=== PATIENT | female | born 1960 | race Caucasian/White ===

== ENCOUNTER → 2018-03-02 19:05 | Outpatient (CLI) | payer BC, SELFPAY ==
--- NOTE | 2018-03-02 19:10 | CT_ITS ---
STUDY: CT ABDOMEN AND PELVIS WITH CONTRAST REASON FOR EXAM: Female, 57 years old. Mid abdominal pain and fullness RADIATION DOSAGE (If Supplied By Facility): CTDIvol = ( 14.91 ) mGy, DLP = ( 722.36 ) mGycm TECHNIQUE: Transaxial images were obtained from the dome of the diaphragm to the symphysis pubis without oral contrast. 100 ml of Isovue 300 contrast was administered. Sagittal and coronal images were reconstructed. Individualized dose optimization techniques were used for this CT. COMPARISON: None. FINDINGS: The visualized lung bases are clear. The visualized portions of the heart and pericardium are within normal limits. There are no calcified gallstones present. Wall appears thickened. The liver is within normal limits. There are no suspicious hepatic lesions. The spleen is normal in size. The pancreas is within normal limits. The adrenal glands are within normal limits. There is a 5 mm nonobstructing stone in the collecting system of the left kidney. There are no additional urinary stones. There is no hydronephrosis. There are simple cysts in the right kidney. There are no left renal lesions. There is thickening of the distal body of the stomach (image 38 series 2 and image 37 series 601). This may be due to peristalsis, but focal gastritis or gastric lesion cannot be excluded. There is no bowel obstruction or inflammation. There is a large amount of stool in the colon, consistent with constipation. The appendix is visualized and appears normal. The aorta is normal in caliber. There is no abdominal or pelvic free air, free fluid, fluid collection or lymphadenopathy. There are no destructive osseous lesions. CT/Abdomen/Pelvis WITH Contrast IMPRESSION: Thickened of the distal body of the stomach. This may be due to peristalsis, but focal gastritis or gastric lesion cannot be excluded. No calcified gallstones. Questionable thickening of the gallbladder wall. If indicated, further evaluation with ultrasound could be performed. No bowel obstruction or inflammation. Normal appendix. Constipation. 5 mm nonobstructing stone in the collecting system of the left kidney. No additional urinary calculi. No hydronephrosis. Simple cysts in the right kidney. Electronically Signed: Josue Mendoza, at 20:03 EDT Tel , Service support ,
[2018-03-02 19:26] LABS: CREATININE FINGERSTICK 0.7 mg/dL (0.55-1.02)
== END ==
PROVIDERS: Family Provider Family Medicine; PCP Family Medicine; Visit Provider Family Medicine
DX: R10.9 Unspecified abdominal pain (principal)
CPT/HCPCS: 74177; Q9967

== ENCOUNTER → 2018-03-16 13:10 | Outpatient (CLI) | payer BC, SELFPAY ==
[2018-03-16 14:14] LABS: Erythrocyte Sedimentation Rate 8 mm/hr (0-30)
[2018-03-16 14:15] LABS: Absolute Lymphocyte Count 1.59 X10^3/ul (0.83-4.51); Absolute Neutrophil Count 3.9 X10^3/uL (2.0-7.7); Basophil# 0.02 X10^3/uL; Basophil% 0.3 % (0-1); Eosinophil# 0.07 X10^3/uL; Eosinophils% 1.1 % (0-5); Hematocrit 45.7 % (37-47); Hemoglobin 15.7 g/dl (12.0-15.0); Lymphocyte # 1.59 X10^3/ul (4.0); Lymphocyte % 25.8 % (19-41); Mean Corp Hgb Conc 34.4 g/gl (32-36); Mean Corpuscular Hgb 29.5 pg (27.0-32.0); Mean Corpuscular Volume 85.7 fL (81-99); Mean Platelet Vol. 11.3 fl (6.2-12.0); Monocyte# 0.55 X10^3/uL; Monocyte% 8.9 % (0-10); Neutrophil # 3.93 X10^3/uL (2.7-7.7); Neutrophil % 63.7 % (47-70); POSITIVE COUNT NO; POSITIVE DIFFERENTIAL NO; POSITIVE MORPHOLOGY NO; Platelet Count 218 K/mm3 (150-450); RBC Distribution Width CV 12.7 % (11.6-14.6); RBC Distribution Width SD 39.8 fl (35.1-43.9); Red Blood Count 5.33 M/mm3 (4.2-5.4); White Blood Count 6.2 K/mm3 (4.4-11.0)
[2018-03-16 14:49] LABS: AST(SGOT) 14 U/L (15-37); Alanine Aminotransfer ALT/SGPT 21 U/L (13-56); Albumin, Serum 3.8 g/dL (3.2-5.0); Alkaline Phosphatase 90 U/L (45-117); Anion Gap 5 (5-15); BUN 15 mg/dL (7-18); BUN/Creat Ratio 22.5 RATIO (10-20); Calcium,Total 9.3 mg/dL (8.5-10.1); Chloride 104 mmol/L (98-107); Creatinine, Serum 0.67 mg/dL (0.55-1.02); EST Glomerular Filtration Rate 97 mL/min (>60); Est Glom Filt Rate - Afr Amer 118 mL/min (>60); Globulin 3.7 g/dL (2.2-4.2); Glucose 112 mg/dL (74-106); Potassium 3.8 mmol/L (3.5-5.1); Protein, Total 7.5 g/dL (6.4-8.2); Sodium Level 139 mmol/L (136-145); Thyroid Stim Hormone (TSH) 0.51 uIU/mL (0.358-3.74)
[2018-03-17 10:21] LABS: Vitamin B12 740 pg/mL (211-911); Vitamin D,25 Hydroxy 29.7 ng/mL (29.95-100.01)
== END ==
PROVIDERS: Family Provider Family Medicine; PCP Family Medicine; Visit Provider Family Medicine
DX: R10.9 Unspecified abdominal pain (principal); R53.83 Other fatigue
CPT/HCPCS: 80053; 82306; 82607; 84443; 85025; 85652

== ENCOUNTER → 2018-04-08 09:06 | Outpatient (CLI) | payer BC, SELFPAY | PROVIDERS: Family Provider Family Medicine; PCP Family Medicine; Visit Provider Family Medicine | DX: R10.9 Unspecified abdominal pain (principal) | CPT/HCPCS: 76705 ==

== ENCOUNTER 2018-05-15 09:03 | Day surgery (SDC) | payer BC, SELFPAY ==
[2018-05-15] VITALS (7 sets, daily range): BP systolic 120–141; BP diastolic 55–78; PULSE 65–86; RESP 14–16; TEMP 36.1–36.7; O2SAT 94–100; BMI 28.2
--- NOTE | 2018-05-15 | GALL_PTH ---
PATIENT: DIALLO [place] [facility] [place] [facility] [id number] AGE/SX: 57/F ROOM: RE05/15/[address]: Dr. Glenroy Parsons MD : [id number] BED: DIS: 05/15/2018 SPEC #: [id number] RECD: 05/15/18 14:46 STATUS: NIDIA REStephie #: [id number] PAMELA: 05/15/18 00:[address]: Glenroy Parsons DEPT: SURGICAL PATHOLOGY RECD BY: Alexx Ramirez ENTERED: 05/15/18 14:46 SP TYPE: VIVIAN FITZGERALD DR: Dr. Constantine Ariza MD Tissues: Gallbladder, NOS Procedures: Surgery Specimen Level III HEADER OPERATION: Laparoscopic cholecystectomy PRE-OP DIAGNOSIS: Calculus of gallbladder with chronic cholecystitis without obstruction, epigastric abdominal pain, nausea TISSUE SUBMITTED: Gallbladder MICROSCOPIC DIAGNOSIS Gallbladder: Chronic cholecystitis and cholelithiasis. SJ:rich 05/16/18 MICROSCOPIC DESCRIPTION Slides are reviewed. GROSS DESCRIPTION Received is one container labeled with the patient's name and designated gallbladder. The specimen consists of a gallbladder measuring 11 cm in length and up to 4 cm in diameter. The external surface is pink-cali, smooth and glistening for the most part. Focally it is granular, hemorrhagic and contains cautery artifact. The gallbladder contains green-yellow mucoid bile and multiple multifaceted [id number]-[id number] stones and stone fragments measuring in aggregate 8 x 6 x 2 cm and 0.1 to 1 cm in greatest dimension. The mucosa is bile-stained and without any mass lesions. The gallbladder wall measures up to 0.3 cm in thickness. Senior Materials Planner sections from the gallbladder and the cystic duct are submitted in one cassette. / SJ:rich 05/15/18 TC:3 CPT: 15250
--- NOTE | 2018-05-15 09:13 | EKG12_ITS ---
Test Reason : PREOP Blood Pressure : / mmHG Vent. Rate : 076 BPM Atrial Rate : 076 BPM P-R Int : 154 ms QRS Dur : 094 ms QT Int : 396 ms P-R-T Axes : 071 -12 017 degrees QTc Int : 445 ms Normal sinus rhythm Normal ECG When compared with ECG of 29-AUG-2006 00:04, No significant change was found Confirmed by CHRISTINE ESCALERA, JESSA ([id number]), non linear editor EUN HOWELL ([id number]) on 05/22/2018 3:54:10 PM Referred By: Glenroy Parsons Confirmed By:JESSA KING MD
[2018-05-15] MEDS: Cefazolin 2 GM in 0.9% Normal Saline 100 ML IV (11:56)
--- NOTE | 2018-05-15 12:09 | PCM.OPRPT ---
Problem List (1) Calculus of gallbladder with chronic cholecystitis without obstruction Status: Acute (2) Epigastric pain Status: Acute (3) Nausea Status: Acute Report of Operation Date of Procedure: 05/15/18 Pre-Operative Diagnosis: Chronic calculus cholecystitis without obstruction. Nausea. Epigastric abdominal pain Post-Operative Diagnosis: Same Surgery/Procedure Performed:: Laparoscopic cholecystectomy Type of Anesthesia:: General Anesthesiologist: Rob Madera Estimated Blood Loss (mL): < 25 cc Fluids Replaced: 1 L LR Description of Procedure: Patient brought in the operating room placed in supine position under excellent general trach intubation abdomen was sterilely prepped draped in usual fashion. Local was injected infraumbilically dissection was carried down to the fascia the fascia grasped with a Anat varies needle was placed inside the abdomen the abdomen was insufflated to 15 torr 10/12 trocar was placed without difficulty patient placed in the head up and rotated to the left subxiphoid #5 trocar was placed, inferior to this another #5 trocar was placed, laterally a 5 trocar was placed. All these under direct visualization without injury to underlying structures. Moderate amount of adhesions were taken off the gallbladder fundus was then grasped and retracted in a cephalad direction. I dissected out the cystic duct place hemoclips proximally distally and ligated the duct identified the cystic artery placed hemoclips proximally distally and ligated the artery deliver the gallbladder from the gallbladder bed with use of electrocautery had no spillage of bile or stones placed a specimen specimen bag delivered through the umbilical port without difficulty irrigated the right upper quadrant used electrocautery for good hemostasis remove the trochars under direct visualization good hemostasis was noted close the fascia of the umbilical port with a [id number]-[id number] stitch of 0 Vicryl. Skin incisions were closed with septicum stitches of 4-0 Monocryl. Steri-Strips are applied sterile dressings were applied and the patient tolerated the procedure well. - Admit VTE Documentation VTE Present on Admission: No VTE Mechan Device Prophylaxis: SCD's VTE Pharm Prophylaxis ordered?: No Reason prophylaxis not ordered:: Treatment Not Indicated
[2018-05-15] MEDS: Bupivacaine Mpf 0.5% 30 ML VIAL (12:30)
--- NOTE | 2018-05-15 12:39 | DCINST_ITS ---
Discharge Diet: Light diet - advance as tolerated Discharge Activity: May Not Drive - for 2-3 days or while taking narcotic pain medications., - - Do not drive, work heavy equipment or sign legal documents for 24 hours. May shower in (days): 1 - with the bandage in place. Additional Activity Instructions:: Pain medication may cause nausea. You should typically eat light foods as you take your pain medications. Pain medication may also cause constipation. If this is a problem for you, please discuss with your doctor. Call your doctor if your incision/area has: Continuous Slow Oozing, Sudden Increased Bleeding, Increased Pain/ Swelling, Increased Redness, Foul Smelling Discharge Call your doctor if you observe: Fever of 101 or Higher Suture Line Care: Avoid Pulling/Pushing, Avoid Pinching/Bending Additional Dressing/Incision Instructions:: Leave operative bandaids on for 2 days. When you remove dressing, leave Steri-Strips on until your follow-up appointment, or until the Steri-Strips fall off on their own. Allergies/Adverse Reactions: Allergies codeine Allergy (Mild, Verified 04/28/18 08:19) muscle cramps Medications to take at Discharge Oxycodone HCl/Acetaminophen [Percocet 5/325] 1 - 2 tab PO Q4H PRN PRN 5 Days #30 tab 05/15/18 The following prescriptions were given: Oxycodone HCl/Acetaminophen [Percocet 5/325] 1 - 2 tab PO Q4H PRN PRN 5 Days #30 tab PRN Reason: Pain Primary Care Physician: Kevan Ariza MD [Primary Care Provider] - Test Results: Test results from this visit will be discussed in further detail at your follow- up appointment, if applicable. Please Follow Up With: Glenroy Parsons MD - Please call [phone] to schedule an appointment. When: 7 days after your surgery.
== END 2018-05-15 15:21 | disposition home or self-care (01) ==
LOC: SDC 09:04 → AC 09:05
PROVIDERS: Family Provider Family Medicine; PCP Family Medicine; Visit Provider Surgery
PROC: (CPT 47562; principal; 2018-05-15 11:00)
DX: K80.10 Calculus of gallbladder with chronic cholecystitis without obstruction (principal); Z85.41 Personal history of malignant neoplasm of cervix uteri; Z87.891 Personal history of nicotine dependence; K58.9 Irritable bowel syndrome, unspecified
CPT/HCPCS: 47562; 88304; 93005; J7120; J2405

== ENCOUNTER 2024-12-26 21:31 | Emergency (ER) | payer BC, SELFPAY ==
[2024-12-26] VITALS (9 sets, daily range): BP systolic 159–192; BP diastolic 83–100; PULSE 102–133; RESP 12–21; TEMP 36.2; O2SAT 93–98; BMI 32.7
--- NOTE | 2024-12-26 22:16 | EKG12_ITS ---
Test Reason : Blood Pressure : */* mmHG Vent. Rate : 110 BPM Atrial Rate : 110 BPM P-R Int : 138 ms QRS Dur : 102 ms QT Int : 374 ms P-R-T Axes : 72 -32 57 degrees QTcB Int : 506 ms Sinus tachycardia with Premature atrial complexes with Aberrant conduction Left axis deviation Moderate voltage criteria for LVH, may be normal variant ( R in aVL , Vinod product ) Abnormal ECG Confirmed by CHRISTINE ESCALERA, JESSA ([id number]), scientific editor KEYONA MORTENSEN ([id number]) on 12/31/2024 9:14:12 AM Referred By: Confirmed By: JESSA KING MD
--- NOTE | 2024-12-26 22:17 | EDS_ITS ---
HPI History of Present Illness Chief Complaint: Hypertension Informant: patient Onset/Context/Timing Onset: Weeks Current Severity: Mild Maximum Severity: Mild Narrative Narrative: 64-year-old female history of hypertension. Last saw her doctor about a year ago. States I am not taking care of myself. 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 Has a history of hypertension previously was on medications but took herself off those medications about 5 years ago. Did not think it was helping. Denies any chest pain. No abdominal pain. No vomiting or fever. Denies any dysuria. Prior similar symptoms: Yes Recent Illness/Hospitalization: [facility] Medical History (Updated 12/27/24 @ 01:[address] Inocente Varghese MD) History of cervical cancer Diarrhea Abdominal pain Gallstones Home Medications ?Medication ?Instructions ?Recorded ?Last Taken ?Type metoprolol tartrate 50 mg tablet 50 mg PO BID 30 days #60 tabs 12/27/24 Unknown Rx Allergy/AdvReac Type Severity Reaction Status Date / Time codeine AdvReac Severe muscle Verified 12/26/24 21:35 cramps Family History Mother Diabetes Hypertension Father Hypertension Heart disease Surgical History History of [facility] Social History Smoking Status: Former smoker alcohol intake: current alcohol intake frequency: a few times a month substance use type: does not use ROS ROS ED ROS Narrative General malaise. Intermittent diarrhea. Constitutional Constitutional ED: Denies chills or fever(s) ENT ENT ED: Denies ear pain Cardiovascular Cardiovascular: Denies chest pain Respiratory/Chest Respiratory/Chest: Denies cough or dyspnea Gastrointestinal Gastrointestinal: Reports diarrhea; Denies abdominal pain, melena, nausea or vomiting Genitourinary Genitourinary ED: Denies dysuria or hematuria Musculoskeletal Musculoskeletal: Denies arthralgias Integumentary Denies abscess Neurologic Neurologic: Denies headache(s) Psychiatric Psychiatric: Denies anxiety Endocrine Endocrinology: Denies cold intolerance Hematologic/Lymphatic Hematologic/Lymphatic: Reports none Allergic/Immunologic Allergic/Immunologic ED: Denies mouth swelling, tongue swelling or urticaria EXAM Physical Exam Narrative Exam Narrative: Well-appearing 64-year-old female. Vital signs her pulse and I am in the room just around 111. Afebrile. Initial pressure 192/100. Pulse ox 97% on room air no hypoxia. No distress. H EENT exam pupils round react light. Motions members. Neck nontender no JVD. No lymphadenopathy. Lungs clear to auscultation bilaterally. Heart tachycardic 115 no murmur. Chest wall nontender. Abdomen soft nontender. Moving all 4 extremities. Normal strength. Normal dorsi plantarflexion. Nontender no edema. Back nontender. Neurologically she is awake alert. Answering questions following commands. NIH 0. Const Vital Signs: 12/26/24 21:35 12/26/24 21:37 12/26/24 22:07 Temperature 97.1 F L Temperature Source Oral Pulse Rate 133 H 111 H Respiratory Rate 18 18 Respiratory Effort Normal Non-Labored Respiratory Pattern Normal Blood Pressure 192/100 H 180/85 H Blood Pressure Mean 130 116 Pulse Ox 97 98 Oxygen Delivery Method Room Air Room Air 12/26/24 23:00 12/26/24 23:48 12/27/24 00:00 Temperature Temperature Source Pulse Rate 115 H 111 H 116 H Respiratory Rate 16 18 14 Respiratory Effort Respiratory Pattern Blood Pressure 176/97 H 183/84 H 195/77 H Blood Pressure Mean 123 117 116 Pulse Ox 98 98 95 Oxygen Delivery Method Room Air Room Air Room Air Positive well nourished and well developed; Negative for cachectic, contractures or unkempt General Appearance ED: well developed; Negative for unkempt, cachectic, contractures, cyanotic, diaphoretic or pallor Nutritional Appearance: Negative for cachectic HEENT Reports moist mucous membranes Negative for trauma or tenderness Eyes PERRL and EOMs intact bilaterally Neck no lymphadenopathy, supple and no JVD Chest Wall inspection of chest normal and palpation of chest normal Resp normal respiratory effort and clear to auscultation bilaterally Cardio regular rhythm, S1 normal heart sound, S2 normal heart sound and no murmurs; Negative for regular rate Rate: tachycardic GI normal to inspection, nondistended, normoactive bowel sounds, non-tender, non- distended and no masses Auscultation: normoactive bowel sounds Palpation: soft; Negative for tender, guarding or rebound tenderness present Back/Spine no CVA tenderness General Back: Negative for CVA tenderness Cervical Spine: Negative for cervical spine tenderness Thoracic Spine / Upper Back: Negative for thoracic spinal tenderness or paraspinal muscle tenderness Lumbar Spine / Lower Back: Negative for lumbar spinal tenderness Extremity normal to inspection General Extremety ED: Negative for edema or tenderness General Extremity: Negative for edema Neuro oriented x3 and CN's II-XII intact bilaterally Sensorium / Orientation: alert; Negative for orientation impaired, lethargic or stuporous Motor Exam: strength 5/5 throughout; Negative for general weakness or strength abnormal Psych mental status grossly normal Appearance: Negative for unkempt Attitude: No agitated Mood & Affect: Negative for depressed, anxious or tearful Skin no rashes or lesions noted and no wounds General Skin Exam: Negative for jaundice or pallor Lesions: No lesion noted Rashes: No rashes noted Trauma: Negative for abrasion MDM MDM MDM Narrative Medical decision making narrative: 64-year-old female general malaise has not been taking her blood pressure medication for years. Exam benign. She is tachycardic. EKG and labs are being obtained including a TSH. This could all be due to blood pressure. Could be secondary to anemia, dehydration thyroid disease,... Repeat exam patient is doing okay. She seems to be very anxious. She is also complaining some nausea. Given Zofran and one milligram of Ativan. Repeat exam around 1 AM patient doing well. Much more relaxed. Blood pressures currently about 150/90. Patient is feeling better. She feels comfortable being discharged home. I think she has acute on chronic hypertension has been treated because she came off the medication. Also think there is an anxiety component. She will be restarted on her metoprolol 50 mg twice daily. Log her blood pressures to follow-up with her doctor decide if they need to change or adjust the medication dose. Also discussed with her physician possible both medical and nonmedical ways to treat anxiety. History & Record Review Discussion w/independent historian: Patient and Family Additional record(s) reviewed:: Prior inpatient record, Prior outpatient record and Prior labs Lab Data Attestation: I reviewed the patient's lab results. Lab results narrative: CBC shows a white count 1.5. H&H is 16 and 47. Platelets 272. Electrolytes show sodium 140. Gap 13. BUN 16 creatinine 0.6. Glucose 139. TSH 1.2 and normal. Labs: Laboratory Results - last 24 hr 12/26/24 22:08 WBC 11.5 H RBC 5.56 H Hgb 16.4 H Hct 47.1 H MCV 84.7 MCH 29.5 MCHC 34.8 RDW Std Deviation 36.7 RDW Coeff of Tianna 11.9 Plt Count 272 MPV 10.8 Immature Gran % (Auto) 0.400 Neut % (Auto) 72.2 H Lymph % (Auto) 18.6 L Towns % (Auto) 7.6 Eos % (Auto) 0.6 Baso % (Auto) 0.6 Absolute Neuts (auto) 8.3 H Absolute Lymphs (auto) 2.14 Nucleated RBC % 0 Sodium 140 Potassium 3.5 Chloride 103 Carbon Dioxide 24.1 Anion Gap 13 BUN 16 Creatinine 0.68 L Estim Creat Clear Calc 91.25 Est GFR (MDRD) Non-Af 98 BUN/Creatinine Ratio 24.0 H Glucose 139 H Calcium 10.4 TSH 1.220 Rhythm Strip Rhythm Strip: Sinus Tach Rate: 110 Ectopy: PVC(s) EKG Initial EKG: Attestation: I personally reviewed and interpreted this EKG as follows: Interpretation: Sinus Tachycardia Comments: Sinus tachycardia rate of 110. PVCs. No acute signs of MS or ischemia. Discharge Plan Triage Chief Complaint: Hypertension ED Provider: Inocente Varghese Dx/Rx/DC Orders Clinical Impression: Hypertension, Anxiety Instructions: ED Anxiety Reaction, ED Hypertension, Established Prescriptions: New metoprolol tartrate 50 mg tablet 50 mg PO BID 30 Days Qty: 60 0RF Primary Care Provider: Constantine Ariza Referrals: Constantine Arzia MD [Primary Care Provider] - As soon as possible Activity Restrictions/Additional Instructions: Log your blood pressure twice daily. In the morning after breakfast when you are calm and relaxed. Again in the evening after dinner when you are calm and relaxed. Recorded and take a weeks worth of blood pressures to your doctor to see if they need to adjust your blood pressure medication. Also discussed with her primary care physician anxiety and ways to treat that both with medication and other ways such as reading, meditation, exercise and walking. Print Language: Japanese Disposition Disposition: Home, Self Care
[2024-12-26 22:32] LABS: Absolute Lymphocyte Count 2.14 X10^3/uL (0.83-4.51); Absolute Neutrophil Count 8.3 X10^3/uL (2.0-7.7); Basophil# 0.07 X10^3/uL; Basophil% 0.6 % (0-1); Eosinophil# 0.07 X10^3/uL; Eosinophils% 0.6 % (0-5); Hematocrit 47.1 % (37-47); Hemoglobin 16.4 g/dL (12.0-15.0); Lymphocyte # 2.14 X10^3/ul (0.83-4.51); Lymphocyte % 18.6 % (19-41); Mean Corp Hgb Conc 34.8 g/dL (32-36); Mean Corpuscular Hgb 29.5 pg (27.0-32.0); Mean Corpuscular Volume 84.7 fL (81-99); Mean Platelet Vol. 10.8 fl (6.2-12.0); Monocyte# 0.87 X10^3/uL; Monocyte% 7.6 % (0-10); NRBC Flagged by Analyzer 0 % (0-5); Neutrophil # 8.29 X10^3/uL (2.7-7.7); Neutrophil % 72.2 % (47-70); Platelet Count 272 K/mm3 (150-450); RBC Distribution Width CV 11.9 % (11.6-14.6); RBC Distribution Width SD 36.7 fl (35.1-43.9); Red Blood Count 5.56 M/mm3 (4.2-5.4); White Blood Count 11.5 K/mm3 (4.4-11.0)
--- NOTE | 2024-12-26 22:55 | ED.RN ---
This nurse into give Lisinopril per order. Pt asking numerous questions about medication, side effects, other options, asking questions regarding if BP goes to high. This nurse attempted to answer all questions. This nurse talked to Dr. Varghese. Instructed to educate pt on importance of medication and has a right to refuse med and would be in to talk to her.
[2024-12-26 22:56] LABS: Anion Gap 13 (5-15); BUN 16 mg/dL (4-19); Calcium,Total 10.4 mg/dL (7.6-11.0); Carbon Dioxide 24.1 mmol/L (21.0-32.0); Chloride 103 mmol/L (98-108); Creatinine, Serum 0.68 mg/dL (0.70-1.20); EST Glomerular Filtration Rate 98 (>60); Estimated Creatinine Clearance 91.25 ml/min (50-250); Glucose 139 mg/dL (70-99); Potassium 3.5 mmol/L (3.3-5.1); Sodium Level 140 mmol/L (133-145)
[2024-12-26] MEDS: Lisinopril 10 MG Tablet PO (23:00)
--- NOTE | 2024-12-26 23:59 | ED.RN ---
Pt up to the restroom. Complaining of chest tightness and unable to swallow. Pt was drinking water without complictions when this nurse walked in. O2 98% RA and RR 18. Assisted pt up to the restroom without difficulty. Dr. Varghese updated.
[2024-12-27] VITALS: BP 195/77; PULSE 116; PULSE 125; RESP 14; RESP 21; O2SAT 94; O2SAT 95
[2024-12-27] MEDS: Lorazepam 2 MG/ML WCH Syringe 1 MG IV (00:12)
[2024-12-27 00:15] VITALS: BP 144/77; PULSE 108; RESP 15; O2SAT 95
[2024-12-27 00:30] VITALS: BP 147/83; PULSE 116; RESP 19; O2SAT 92
[2024-12-27 00:45] VITALS: BP 150/71; PULSE 113; RESP 16; O2SAT 94
[2024-12-27 01:00] VITALS: BP 137/69; PULSE 109; RESP 15; TEMP 36.6; O2SAT 97
== END 2024-12-27 01:15 | disposition home or self-care (01) ==
PROVIDERS: Emergency Provider Emergency Medicine; PCP Family Medicine; Visit Provider Emergency Medicine
DX: I10 Essential (primary) hypertension (principal); R11.0 Nausea; F41.9 Anxiety disorder, unspecified; I49.3 Ventricular premature depolarization; Z91.148 Patient's other noncompliance with medication regimen for other reason; Z87.891 Personal history of nicotine dependence
CPT/HCPCS: 80048; 84443; 85025; 93005; 96374; 99284; A4216; J2405

== ENCOUNTER → 2025-02-06 | Outpatient (CLI) | payer BC, SELFPAY ==
[2025-02-06 17:49] LABS: Absolute Lymphocyte Count 1.93 X10^3/uL (0.83-4.51); Absolute Neutrophil Count 6.8 X10^3/uL (2.0-7.7); Basophil# 0.07 X10^3/uL; Basophil% 0.7 % (0-1); Eosinophil# 0.15 X10^3/uL; Eosinophils% 1.5 % (0-5); Hematocrit 41.9 % (37-47); Hemoglobin 14.2 g/dL (12.0-15.0); Lymphocyte # 1.93 X10^3/ul (0.83-4.51); Lymphocyte % 19.8 % (19-41); Mean Corp Hgb Conc 33.9 g/dL (32-36); Mean Corpuscular Hgb 29.8 pg (27.0-32.0); Mean Corpuscular Volume 87.8 fL (81-99); Mean Platelet Vol. 11.5 fl (6.2-12.0); Monocyte# 0.79 X10^3/uL; Monocyte% 8.1 % (0-10); NRBC Flagged by Analyzer 0 % (0-5); Neutrophil # 6.78 X10^3/uL (2.7-7.7); Neutrophil % 69.4 % (47-70); Platelet Count 281 K/mm3 (150-450); RBC Distribution Width CV 12.5 % (11.6-14.6); RBC Distribution Width SD 40.1 fl (35.1-43.9); Red Blood Count 4.77 M/mm3 (4.2-5.4); Reticulocyte Count 2.18 % (0.5-1.5); White Blood Count 9.8 K/mm3 (4.4-11.0)
[2025-02-06 18:29] LABS: ALB/GLOB Ratio 1.4 RATIO (0.9-2.4); AST(SGOT) 22 U/L (<=31); Alanine Aminotransfer ALT/SGPT 30 U/L (<=34); Albumin, Serum 4.1 g/dL (3.4-4.8); Alkaline Phosphatase 135 U/L (35-104); Anion Gap 10 (5-15); BUN 19 mg/dL (4-19); BUN/Creat Ratio 27.6 RATIO (10-20); Calcium,Total 9.7 mg/dL (7.6-11.0); Chloride 102 mmol/L (98-108); Cholesterol 279 mg/dL (<=200); EST Glomerular Filtration Rate 98 (>60); Ferritin 222 ng/mL (22-378); Globulin 2.9 g/dL (2.2-4.2); Glucose 113 mg/dL (70-99); High Density Lipoprotein 36 mg/dL; Low Density Lipoprotein Calc. 98 mg/dL; Potassium 3.7 mmol/L (3.3-5.1); Sodium Level 139 mmol/L (133-145); Total Bilirubin 0.32 mg/dL (0.00-1.30); Triglycerides 723 mg/dL; Very Low Density Lipoprotein 145 mg/dL (5-40); cholesterol:hdl ratio screen 7.73
[2025-02-06 18:52] LABS: Iron 97 ug/dL (50-170)
--- OUTSIDE RECORDS SUMMARY | 2025-02-06 22:34 | XMS RPT_ITS | CCD ---
Author Organization [facility] Care Team Providers Care Commercial Estimator Name Role Phone Unavailable Primary Care Provider UnavailANGELIQUE Lopez Referring Unavailable ANGELIQUE DE LEÓN Admitting Unavailable ANGELIQUE DE LEÓN Attending Unavailable ANGELIQUE DE LEÓN Referring Unavailable RG REINA Attending Unavailable Annita ESCALERA, Dr. Fitch Primary Care Provider Dr. Inocente Varghese MD Emergency Provider Inocente Varghese Attending Unavailable Constantine Ariza Primary Care Unavailable Allergies Allergy Classification Reported Allergen(s) Allergy Type Date of Onset Reaction(s) Facility (2 sources) Acetaminophen / oxyCODONE; Translations: [OXYCODONE-ACETAMI NOPHEN] Drug Allergy 2 Intolerance [facility] (1 source) Codeine Drug Allergy 5 muscle cramps [facility] (1 source) Codeine Drug Allergy 5 [facility] Repository Medications Current Medications Medication Drug Class(es) Dates Sig (Normalized) Sig (Original) metoprolol tartrate 50 mg oral tablet (1 source) beta-Adrenergic Fred Start: 12-27-2024 take 1 tablet by mouth twice daily Metoprolol Tartrate 50 mg tablet Active 50 mg PO TWICE A DAY 60 December 27, 2024 12:00am Completed/Discontinued Medications Medication Drug Class(es) Dates Sig (Normalized) Sig (Original) acetaminophen 500 mg oral tablet (1 source) take 2 tablets by mouth every eight hours as needed acetaminophen (TYLENOL EXTRA STRENGTH) 500 mg tablet Take 1,000 mg by mouth every 8 hours as needed. 0 Active Comment on above: Take 1,000 mg by cindy th every 8 hours as needed. acetaminophen 325 mg / oxyCODONE hydrochloride 5 mg oral tablet (1 source) Opioid Agonist Start: 05-15-2018 End: 05-20-2018 Oxycodone-Acetamino phen 1 TABLET tablet Discontinued 1 - 2 {tbl} PO EVERY 4 HOURS NEEDED as needed for Pain 30 May 15, 2018 12:00am May 19, 2018 12:00am May 20, 2018 12:12am Problems Problem Classification Problem Date Documented Date Episodic/Chronic Abdominal pain (1 source) Epigastric pain; Translations: [Epigastric pain] 05-15-2018 Episodic Anxiety disorders (1 source) Anxiety; Translations: [Anxiety disorder, unspecified] 12-27-2024 Chronic Biliary tract disease (1 source) Cholelithiasis AND cholecystitis without obstruction; Translations: [Calculus of gallbladder with chronic cholecystitis without obstruction] 05-15-2018 Episodic Calculus of urinary tract (2 sources) Calculus of kidney; Translations: [Kidney stone] Onset: 04-07-2022 Episodic Essential hypertension (2 sources) Hypertensive disorder; Translations: [Essential (primary) hypertension] Onset: 01-02-2025 12-27-2024 Chronic Nausea and vomiting (1 source) Nausea; Translations: [Nausea] 05-15-2018 Episodic Results Test Name Value Interpretation Reference Range Facility 12 Lead EKGon 12-26-2024 12 Lead EKG [facility] Cardi[facility] Services [address] [place] [address] 12 Lead EKG 12/26/24 2225 MR#: [id number] Acct: [id number] Name: DIALLO SAL Rep #: [id number] : 1960 64 From: Estuardo Danielson MD Attending Dr: Status: DEP ER Ordering Dr: Inocente Varghese MD Date: 12/26/24 Location: ED Sex: F C Admitted: Test Reason : Blood Pressure : */* mmHG Vent. Rate : 110 BPM Atrial Rate : 110 BPM P-R Int : 138 ms QRS Dur : 102 ms QT Int : 374 ms P-R-T Axes : 72 -32 57 degrees QTcB Int : 506 ms Sinus tachycardia with Premature atrial complexes with Aberrant conduction Left axis deviation Moderate voltage criteria for LVH, may be normal variant ( R in aVL , Hospers product ) Abnormal ECG Confirmed by ESTUARDO DANIELSON MD ([id number]), digital editor KEYONA MORTENSEN ([id number]) on 12/31/2024 9:14:12 AM Referred By: Confirmed By: ESTUARDO DANIELSON MD 12/31/2414 Date Estuardo Danielson MD CC: Dr. Constantine Ariza MD; Dr. Inocente Varghese MD Signed Normal [facility] Absolute lymphocyte countOrd ered By: Inocente Varghese on 12-26-2024 Lymphocytes Auto (Unsp spec) [#/Vol] 2.14 10*3/uL 0.83-4.51 [facility] Absolute neutrophil countOrd ered By: Inocente Varghese on 12-26-2024 Neutrophils (Bld) [#/Vol] 8.3 10*3/uL High 2.0-7.7 [facility] Anion gap in Serum or Plasma Ordered By: Inocente Varghese on 12-26-2024 Anion gap [Moles/Vol] 13 mmol/L 5-15 [facility] Automated lymphocyte count a s percentage of total leukocytesOrdered By: Inocente Varghese on 12-26-2024 Lymphocytes/100 WBC Auto (Unsp spec) 18.6 % Low 19-41 [facility] BUN/creatinine ratioOrdered By: Inocente Varghese on 12-26-2024 Urea nitrogen/Creatinine [Mass ratio] 24.0 mg/mg High 10-20 [facility] Basic Metabolic Profile (BMP )on 12-26-2024 BUN/CRE 24.0 RATIO High - [facility] Comment on above: Performed By: #### L 500.2500, L501.9520, L100.0100 #### [facility] [address] [place], [address] Calcium [Mass/Vol] 10.4 mg/dL Normal 7.6-11.[address] [facility] Comment on above: Performed By: #### L 500.2500, L501.9520, L100.0100 #### [facility] [address] [place], [address] Chloride [Moles/Vol] 103 mmol/L Normal 98-108 [facility] Comment on above: Performed By: #### L 500.2500, L501.9520, L100.0100 #### [facility] [address] [place], [address] CO2 [Moles/Vol] 24.1 mmol/L Normal 21.0-32.0 [facility] Comment on above: Performed By: #### L 500.2500, L501.9520, L100.0100 #### [facility] [address] [place], [address] Creatinine [Mass/Vol] 0.68 mg/dL Low 0.70-1.20 [facility] Comment on above: Performed By: #### L 500.2500, L501.9520, L100.0100 #### [facility] [address] [place], [address] ECRCL 91.25 ml/min Normal 50-250 [facility] Comment on above: Performed By: #### L 500.2500, L501.9520, L100.0100 #### [facility] [address] [place], [address] GAP 13 Normal 5-15 [facility] Comment on above: Performed By: #### L 500.2500, L501.9520, L100.0100 #### [facility] [address] [place], [address] GFR/1.73 sq M.predicted among non-blacks MDRD (S/P/Bld) [Vol rate/Area] 98 mL/min/{1.73_m2} Normal >60 [facility] Comment on above: Result Comment: mL/m in/1.73m2 CKD-EPI Creatinine Equation (2020) Performed By: #### L 500.2500, L501.9520, L100.0100 #### [facility] [address] [place], [address] Glucose [Mass/Vol] 139 mg/dL High 70-[address] [facility] Comment on above: Performed By: #### L 500.2500, L501.9520, L100.0100 #### [facility] [address] [place], [address] Potassium [Moles/Vol] 3.5 mmol/L Normal 3.3-5.1 [facility] Comment on above: Performed By: #### L 500.2500, L501.9520, L100.0100 #### [facility] [address] [place], [address] Sodium [Moles/Vol] 140 mmol/L Normal 133-[address] [facility] Comment on above: Performed By: #### L 500.2500, L501.9520, L100.0100 #### [facility] [address] [place], [address] Urea nitrogen [Mass/Vol] 16 mg/dL Normal 4-19 [facility] Comment on above: Performed By: #### L 500.2500, L501.9520, L100.0100 #### [facility] [address] [place], [address] Basophil percentageOrdered B y: Inocente Varghese on 12-26-2024 Basophils/100 WBC (Bld) 0.6 % 0-1 [facility] CBC W/Diff, Automatedon 12-13 Absolute Lymph 2.14 X10 3/uL Normal 0.83-4.51 [facility] Comment on above: Performed By: #### L 500.2500, L501.9520, L100.0100 #### [facility] [address] [place], [address] Absolute Neut 8.3 X10 3/uL High 2.0-7.7 [facility] Comment on above: Performed By: #### L 500.2500, L501.9520, L100.0100 #### [facility] [address] [place], [address] Basophils/100 WBC (Bld) 0.6 % Normal 0-1 [facility] Comment on above: Performed By: #### L 500.2500, L501.9520, L100.0100 #### [facility] [address] [place], [address] Eosinophils/100 WBC (Bld) 0.6 % Normal 0-5 [facility] Comment on above: Performed By: #### L 500.2500, L501.9520, L100.0100 #### [facility] [address] [place], [address] Erythrocyte distribution width (RBC) [Ratio] 11.9 % Normal 11.6-14.6 [facility] Comment on above: Performed By: #### L 500.2500, L501.9520, L100.0100 #### [facility] [address] [place], [address] Hematocrit (Bld) [Volume fraction] 47.1 % High 37-47 [facility] Comment on above: Performed By: #### L 500.2500, L501.9520, L100.0100 #### [facility] [address] [place], [address] Hemoglobin (Bld) [Mass/Vol] 16.4 g/dL High 12.0-15.0 [facility] Comment on above: Performed By: #### L 500.2500, L501.9520, L100.0100 #### [facility] [address] [place], [address] IG% 0.400 Normal 0.0-0.9 [facility] Comment on above: Result Comment: IG% - Immature Granulocytes (promyelocytes, myelocytes and metamyelocytes) > 1% indicates that a LEFT SHIFT is Present. Performed By: #### L 500.2500, L501.9520, L100.0100 #### [facility] [address] [place], [address] Lymphocytes/100 WBC (Bld) 18.6 % Low 19-41 [facility] Comment on above: Performed By: #### L 500.2500, L501.9520, L100.0100 #### [facility] [address] [place], [address] MCH (RBC) [Entitic mass] 29.5 pg Normal 27.0-32.0 [facility] Comment on above: Performed By: #### L 500.2500, L501.9520, L100.0100 #### [facility] [address] [place], [address] MCHC (RBC) [Mass/Vol] 34.8 g/dL Normal 32-36 [facility] Comment on above: Performed By: #### L 500.2500, L501.9520, L100.0100 #### [facility] [address] [place], [address] MCV (RBC) [Entitic vol] 84.7 fL Normal 81-99 [facility] Comment on above: Performed By: #### L 500.2500, L501.9520, L100.0100 #### [facility] [address] [place], [address] Monocytes/100 WBC (Bld) 7.6 % Normal 0-10 [facility] Comment on above: Performed By: #### L 500.2500, L501.9520, L100.0100 #### [facility] [address] [place], [address] Neutrophils/100 WBC (Bld) 72.2 % High 47-70 [facility] Comment on above: Performed By: #### L 500.2500, L501.9520, L100.0100 #### [facility] [address] [place], [address] Nucleated RBC (Bld) [#/Vol] 0 10*3/uL Normal 0-5 [facility] Comment on above: Performed By: #### L 500.2500, L501.9520, L100.0100 #### [facility] [address] [place], [address] Platelet mean volume (Bld) [Entitic vol] 10.8 fL Normal 6.2-12.0 [facility] Comment on above: Performed By: #### L 500.2500, L501.9520, L100.0100 #### [facility] [address] [place], [address] Platelets (Bld) [#/Vol] 272 10*3/uL Normal 150-450 [facility] Comment on above: Performed By: #### L 500.2500, L501.9520, L100.0100 #### [facility] [address] [place], [address] RBC (Bld) [#/Vol] 5.56 10*6/uL High 4.2-5.4 [facility] Comment on above: Performed By: #### L 500.2500, L501.9520, L100.0100 #### [facility] [address] [place], [address] RDW SD 36.7 fl Normal 35.1-43.9 [facility] Comment on above: Performed By: #### L 500.2500, L501.9520, L100.0100 #### [facility] [address] [place], [address] WBC (Bld) [#/Vol] 11.5 10*3/uL High 4.4-11.0 [facility] Comment on above: Performed By: #### L 500.2500, L501.9520, L100.0100 #### [facility] [address] [place], [address] Carbon dioxide, total [Moles /volume] in Central venous bloodOrdered By: Inocente Varghese on 12-26-2024 CO2 [Moles/Vol] 24.1 mmol/L 21.0-32.0 [facility] Chloride assayOrdered By: Porter Varghese on 12-26-2024 Chloride [Moles/Vol] 103 mmol/L 98-108 [facility] Emergency Department Summary on 12-26-2024 Emergency Department Summary [facility] Medical Records Department [address] [place] [address] Emergency Department Summary 12/26/24 MR#: [id number] Acct: [id number] Name: DIALLO SAL Rep #: [id number] : 1960 64 From: Inocente Varghese MD PCP: Dr. Constantine Ariza MD Status:REG ER Location: ED HPI History of Present Illness Chief Complaint: Hypertension Informant: patient Onset/Context/Timing Onset: Weeks Current Severity: Mild Maximum Severity: Mild Narrative Narrative: 64-year-old female history of hypertension. Last saw her doctor about a year ago. States I am not taking care of myself. 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 Has a history of hypertension previously was on medications but took herself off those medications about 5 years ago. Did not think it was helping. Denies any chest pain. No abdominal pain. No vomiting or fever. Denies any dysuria. Prior similar symptoms: Yes Recent Illness/Hospitalizat ion: No PFSH PFSH Medical History (Updated 12/27/24 @ 01:[address] Inocente Varghese MD) History of cervical cancer Diarrhea Abdominal pain Gallstones Home Medications ???Medication ???Instructions ???Recorded ???Last Taken ???Type metoprolol tartrate 50 mg tablet 50 mg PO BID 30 days #60 tabs 12/13 01/06 Unknown Rx Allergy/AdvReac Type Severity Reaction Status Date / Time codeine AdvReac Severe muscle Verified 12/26/24 21:35 cramps Family History Mother Diabetes Hypertension Father Hypertension Heart disease Surgical History History of LAVH Social History Smoking Status: Former smoker alcohol intake: current alcohol intake frequency: a few times a month substance use type: does not use ROS ROS ED ROS Narrative General malaise. Intermittent diarrhea. Constitutional Constitutional ED: Denies chills or fever(s) ENT ENT ED: Denies ear pain Cardiovascular Cardiovascular: Denies chest pain Respiratory/Chest Respiratory/Chest: Denies cough or dyspnea Gastrointestinal Gastrointestinal: Reports diarrhea; Denies abdominal pain, melena, nausea or vomiting Genitourinary Genitourinary ED: Denies dysuria or hematuria Musculoskeletal Musculoskeletal: Denies arthralgias Integumentary Denies abscess Neurologic Neurologic: Denies headache(s) Psychiatric Psychiatric: Denies anxiety Endocrine Endocrinology: Denies cold intolerance Hematologic/Lymphati c Hematologic/Lymphati c: Reports none Allergic/Immunologic Allergic/Immunologic ED: Denies mouth swelling, tongue swelling or urticaria EXAM Physical Exam Narrative Exam Narrative: Well-appearing 64-year-old female. Vital signs her pulse and I am in the room just around 111. Afebrile. Initial pressure 192/100. Pulse ox 97% on room air no hypoxia. No distress. H EENT exam pupils round react light. Motions members. Neck nontender no JVD. No lymphadenopathy. Lungs clear to auscultation bilaterally. Heart tachycardic 115 no murmur. Chest wall nontender. Abdomen soft nontender. Moving all 4 extremities. Normal strength. Normal dorsi plantarflexion. Nontender no edema. Back nontender. Neurologically she is awake alert. Answering questions following commands. NIH 0. Const Vital Signs: 12/26/24 21:35 12/26/24 21:37 12/26/24 22:07 Temperature 97.1 F L Temperature Source Oral Pulse Rate 133 H 111 H Respiratory Rate 18 18 Respiratory Effort Normal Non-Labored Respiratory Pattern Normal Blood Pressure 192/100 H 180/85 H Blood Pressure Mean 130 116 Pulse Ox 97 98 Oxygen Delivery Method Room Air Room Air 12/26/24 23:00 12/26/24 23:48 12/27/24 00:00 Temperature Temperature Source Pulse Rate 115 H 111 H 116 H Respiratory Rate 16 18 14 Respiratory Effort Respiratory Pattern Blood Pressure 176/97 H 183/84 H 195/77 H Blood Pressure Mean 123 117 116 Pulse Ox 98 98 95 Oxygen Delivery Method Room Air Room Air Room Air Positive well nourished and well developed; Negative for cachectic, contractures or unkempt General Appearance ED: well developed; Negative for unkempt, cachectic, contractures, cyanotic, diaphoretic or pallor Nutritional Appearance: Negative for cachectic HEENT Reports moist mucous membranes Negative for trauma or tenderness Eyes PERRL and EOMs intact bilaterally Neck no lymphadenopathy, supple and no JVD Chest Wall inspection of chest normal and palpation of chest normal Resp normal respiratory effort and clear to auscultation bilaterally Cardio regular rhythm, S1 normal heart sound, S2 normal heart sound and no murmurs; Negative for regular rate Rate: tachycardic GI normal to (more content not included)... Normal [facility] Eosinophil percentageOrdered By: Inocente Varghese on 12-26-2024 Eosinophils/100 WBC (Bld) 0.6 % 0-5 [facility] Erythrocyte distribution wid th ratioOrdered By: Inocente Varghese on 12-26-2024 Erythrocyte distribution width (RBC) [Ratio] 11.9 % 11.6-14.6 [facility] Erythrocyte distribution wid th standard deviationOrdered By: Inocente Varghese on 12-26-2024 Erythrocyte distribution width (RBC) [Ratio] 36.7 fl 35.1-43.9 [facility] Glomerular filtration rate ( GFR) estimation/1.73 sq m using serum, plasma, or whole bOrdered By: Inocente Varghese on 12-26-2024 GFR/1.73 sq M.predicted among non-blacks MDRD (S/P/Bld) [Vol rate/Area] 98 mL/min/{1.73_m2} >60 [facility] Comment on above: mL/min/1.73m2 CKD-EP I Creatinine Equation (2020) Hematocrit Auto (Bld) [Volum e fraction]Ordered By: Inocente Varghese on 12-26-2024 Hematocrit (Bld) [Volume fraction] 47.1 % High 37-47 [facility] Hemoglobin measurementOrdere d By: Inocente Varghese on 12-26-2024 Hemoglobin (Bld) [Mass/Vol] 16.4 g/dL High 12.0-15.0 [facility] Immature granulocytes/100 WB C Auto (Bld)Ordered By: Inocente Varghese on 12-26-2024 Immature granulocytes/100 WBC (Bld) 0.400 % 0.0-0.9 [facility] Comment on above: IG% - Immature Granu locytes (promyelocytes, myelocytes and metamyelocytes) > 1% indicates that a LEFT SHIFT is Present. MCV (mean corpuscular volume ) determinationOrdered By: Inocente Varghese on 12-26-2024 MCV (RBC) [Entitic vol] 84.7 fL 81-99 [facility] Mean corpuscular hemoglobin (MCH) determinationOrdered By: Inocente Varghese on 12-26-2024 MCH (RBC) [Entitic mass] 29.5 pg 27.0-32.0 [facility] Mean corpuscular hemoglobin concentration (MCHC) determinationOrdered By: Inocente Varghese on 12-26-2024 MCHC (RBC) [Mass/Vol] 34.8 g/dL 32-36 [facility] Mean platelet volume determi nationOrdered By: Inocente Varghese on 12-26-2024 Platelet mean volume (Bld) [Entitic vol] 10.8 fL 6.2-12.0 [facility] Monocyte percentageOrdered B y: Inocente Varghese on 12-26-2024 Monocytes/100 WBC (Bld) 7.6 % 0-10 [facility] Neutrophil percentageOrdered By: Inocente Varghese on 12-26-2024 Neutrophils/100 WBC (Bld) 72.2 % High 47-70 [facility] Nucleated red blood cell per centageOrdered By: Inocente Varghese on 12-26-2024 Nucleated RBC/100 WBC (Bld) [Ratio] 0 % 0-5 [facility] Platelet countOrdered By: Porter Varghese on 12-26-2024 Platelets (Bld) [#/Vol] 272 10*3/uL 150-450 [facility] Potassium measurement (mass/ volume)Ordered By: Inocente Varghese on 12-26-2024 Potassium (Unsp spec) [Mass/Vol] 3.5 mmol/L 3.3-5.1 [facility] RBC Auto (Bld) [#/Vol]Ordere d By: Inocente Varghese on 12-26-2024 RBC (Bld) [#/Vol] 5.56 10*6/uL High 4.2-5.4 [facility] Serum creatinine measurement (mass/volume)Ordered By: Inocente Varghese on 12-26-2024 Creatinine [Mass/Vol] 0.68 mg/dL Low 0.70-1.20 [facility] Serum glucose measurement (m ass/volume)Ordered By: Inocente Varghese on 12-26-2024 Glucose [Mass/Vol] 139 mg/dL High 70-[address] [facility] Serum or plasma calcium herbert urement (mass/volume)Ordered By: Inocente Varghese on 12-26-2024 Calcium [Mass/Vol] 10.4 mg/dL 7.6-11.[address] [facility] Serum or plasma urea nitroge n measurement (mass/volume)Ordered By: Inocente Varghese on 12-26-2024 Urea nitrogen [Mass/Vol] 16 mg/dL 4-19 [facility] Sodium levelOrdered By: Inocente Varghese on 12-26-2024 Sodium [Moles/Vol] 140 mmol/L 133-[address] [facility] TSH DL <= 0.005 mIU/L QnOrde red By: Inocente Varghese on 12-26-2024 TSH Qn 1.220 uIU/mL 0.300-4.200 [facility] Thyroid Stim Hormone (TSH)on 12-26-2024 TSH 1.220 uIU/mL Normal 0.300-4.200 [facility] Comment on above: Performed By: #### L 500.2500, L501.9520, L100.0100 #### [facility] [address] [place] [address], [address] White blood cell (WBC) count Ordered By: Inocente Varghese on 12-26-2024 WBC (Bld) [#/Vol] 11.5 10*3/uL High 4.4-11.0 [facility] XR ABDOMEN 1V SUPINEon 04-14 XR ABDOMEN 1V SUPINE * * *Final Report* * * DATE OF EXAM: Apr 14 2022 2:20PM [id number] [id number] - XR ABDOMEN 1V SUPINE / PROCEDURE REASON: kidney stones * * * * Physician Interpretation * * * * XR ABDOMEN 1V SUPINE Ordering Physician: ANGELIQUE WASHINGTON Clinical Statement: Kidney stones Comparison: 04/09/2022 FINDINGS: A left double-J ureteral stent has been placed. No calcifications are seen along the course of the catheter. A cluster of calcifications is present within the inferior pole of the left kidney. No calcifications seen on the right. Gas and fecal material are scattered throughout the colon. IMPRESSION: Left nephrolithiasis with interval placement of a double-J ureteral stent. No stones seen along the course of the ureter. Event Executive: PSCB Transcribe Date/Time: Apr 15 2022 7:54A Dictated by : VIVIAN DODGE MD This examination was interpreted and the report reviewed and electronically signed by: VIVIAN DODGE MD on Apr 15 2022 7:55AM EST [id number] CN [facility] ALLIED HEALTHon 04-09-2022 ALLIED HEALTH HNO ID: [id number] Author: RT Sal(R) Service: Radiology Author Type: Technologist Type: Allied Health Filed: 04/09/2022 9:51 AM Note Text: Summary: abdomen xray Radiology Service Progress Note PATIENT NAME: Diallo Sal DATE OF SERVICE: April 09, 2022 TIME: 9:50 AM PATIENT IDENTITY VERIFICATION COMPLETED USING TWO (2) IDENTIFIERS: Name and Date of confirmed by patient verbally and Name and Date of confirmed by identification band. FALL SCREENING: Has the patient had 2 falls in the last year or 1 fall with injury or currently using an Ambulatory Assistive Device (Walker, Cane, Wheelchair, Crutches, etc.)? No PATIENT GENDER DATA: Female. status: : No status: NO. PATIENT RELEVANT IMPLANT DATA REVIEWED: Not Applicable RADIOLOGY DEPARTMENT: General X-ray: Exam(s) Completed: Abdomen X-Ray: Abdomen PERIPHERAL IV DATA: Not applicable SIGNED BY: Diane Nuno RT(R) April 09, 2022 9:50 AM [facility] ANES POSTPROC EVALon 022 ANES POSTPROC EVAL HNO ID: [id number] Author: Atilio Portillo DO Service: Anesthesiology Author Type: Anesthesiologist Type: Anesthesia Postprocedure Evaluation Filed: 04/09/2022 12:32 PM Note Text: POST ANESTHESIA EVALUATION NOTE : 1960 Procedure Summary Date: 04/09/22 Room / Location: OR / OR Anesthesia Start: 1033 Anesthesia Stop: 1139 Procedures: CYSTOSCOPY AND LEFT URETERAL STENT PLACEMENT (Left) LEFT ESWL (Left) Diagnosis: Kidney stone (Kidney stone [N20.0]) Surgeons: Angelique De León MD Responsible Provider: Darron Rm DO Anesthesia Type: general ASA Status: 2 Anesthesia Type: general Airway Type: LMA Last Vitals Vitals Value Taken Time BP 136/55 04/09/22 1230 Temp 36.8 ?C (98.3 ?F) 04/09/22 1138 Pulse 107 04/09/22 1229 Resp 18 04/09/22 1200 SpO2 96 % 04/09/22 1229 Vitals shown include unvalidated device data. Post Anesthesia Patient Status Patient Evaluation: PACU. PACU/ICU Patient Condition: stable. Anticipated Disposition: phase 2 then home. Neurological Status: aware and responsive. Pulmonary Status: breathing comfortably on room air Airway Control: returned to baseline unsupported. Cardiovascular Status: stable. Pain Management: clinically adequate Postoperative Hydration: acceptable. Intraoperative Events: no significant anesthesia events Post Operative Nausea/Vomiting Status: no significant post operative nausea or vomiting Anesthetic Observations: Recommendation: continue current plan of care. Anesthesia Observations No Documentation SIGNATURE: Atilio Portillo DO PATIENT NAME: Diallo Sal DATE: April 09, 2022 TIME: 12:31 PM CSN: [id number] [facility] ANES PRE-OPon 04-09-2022 ANES PRE-OP HNO ID: [id number] Author: Charley Sabillon MD Service: Anesthesiology Author Type: Anesthesiologist Type: Anesthesia Preprocedure Evaluation Filed: 04/09/2022 10:20 AM Note Text: ANESTHESIOLOGY DAY OF SURGERY NOTE : 1960 Procedure Information Date/Time: 04/09/22 0950 Procedures: CYSTOSCOPY POSSIBLE URETEROSCOPY LEFT HOLMIUM LASER LITHOTRIPSY AND STENT PLACEMENT (Left) POSSIBLE URETERAL RIGHT ESWL (Right) Location: MR OR 12 / MR OR Surgeons: Angelique De León MD Estimated body mass index is 34.01 kg/m? as calculated from the following: Height as of this encounter: 160 cm (5' 3). Weight as of this encounter: 87.1 kg (192 lb). Most recent hematocrit and potassium results: No results found for this basename: HCT,HEMATOCRIT,K,POT ASSIUM Relevant Problems No relevant active problems I - PHYSICAL EVALUATION AIRWAY Patient intubated: No. Tracheostomy tube not present Mallampati: II. TM distance: >3 FB. Neck ROM: full ROM without neurological symptoms. Mouth opening: adequate. Short neck: no. Thick neck: no Additional exam findings: yes. CARDIOVASCULAR Rhythm: regular Murmur not present. PULMONARY Rhonchi not present. ABDOMINAL Abdomen: soft. Bowel sounds: normal. II - ANESTHESIA PLAN ASA Score: 2 Anesthetic Plan: general Airway type: LMA The patient is not a current smoker. NPO Status: adequate Beta Fred Administration of chronic beta fred medication not planned. Monitoring plan: standard ASA. Postoperative analgesic plan: parenteral or oral opioids and multimodal analgesia. Informed Consent Anesthetic risks, benefits, alternatives, personnel and consent discussed: yes. Patient / Responsible Republican agrees to proceed: yes Patient / Surrogate agrees to blood products: blood products not planned DNR status not reviewed with patient and/or family prior to surgery. Significant changes in the patient condition since the History and Physical, not otherwise documented in primary service progress note: no. Potential Anesthesia issues that may suggest increased risk of complications or contraindication to planned procedure: none. Vitals Value Taken Time BP 180/86 04/09/22 0953 Pulse 95 04/09/22 0953 Resp 18 04/09/22 0953 Temp 36.8 ?C (98.2 ?F) 04/09/22 0953 SpO2 98 % 04/09/22 0953 Facility-Administere d Medications as of 04/09/2022 Medication Dose Route Frequency - [COMPLETED] lidocaine 10 mg/mL (1 %) 1-2 mg injection (XYLOCAINE) 0.1-0.2 mL INTRADERMAL PRN - lactated ringers iv infusion 5-30 mL/hr INTRAVENOUS CONTINUOUS - ceFAZolin iv piggyback 2 g in D5W (iso-osmotic) 100 mL (ANCEF) 2 g INTRAVENOUS Pre-Op Once No current outpatient medications on file as of 04/09/2022. I have interviewed and examined the patient. I have reviewed the medical record and/or the pre-anesthesia evaluation, pertinent labs, and test results. This contains updated information obtained within 48 hours of Surgery/Procedure. SIGNATURE: Charley Sabillon MD PATIENT NAME: Diallo Sal DATE: April 09, 2022 TIME: 10:19 AM CSN: [id number] [facility] NURSING PROGon 04-09-2022 NURSING PROG HNO ID: [id number] Author: Penny Seymour RN Service: Nursing Author Type: Registered Nurse Type: Nursing Progress Note Filed: 04/09/2022 1:44 PM Note Text: Please note pt is c/o of pain of a 7 in her head neck and abd but only will take tylenol. C/o of upset stomach so given IV zofran as well. Pt says she doesn't understand why she still has pain after surgery. Educated pt that she did have a surgical procedure and a stent was placed so her body is getting used to that and some pain is to be expected. Pt resting with at bedside. Will continue to monitor. [facility] OPERATIVE NOon 04-09-2022 OPERATIVE NO HNO ID: [id number] Author: Angelique De León MD Service: Urology Author Type: Physician Type: Operative Report Filed: 04/09/2022 11:52 AM Note Text: OPERATIVE/PROCEDURE REPORT LOG ID: [id number] SURGERY/PROCEDURE DATE: 04/09/2022 INCISION/PROCEDURE START TIME: 10:46 AM INCISION CLOSE/PROCEDURE END TIME: 11:26 AM SURGEON(S)/PROCEDURA LIST(S) AND HEAD SWAMPER(S): Surgeon(s) and Role: * Angelique De León MD - Primary No Additional Staff SURGERY/PROCEDURE(S) : Cystoscopy, left 6 x 26 regular stent placement and left renal ESWL ANESTHESIA: General SURGERY/PROCEDURE DETAILS: The patient was taken to the operative suite given anesthetic placed in the supine position with SCDs in place. Patient then was placed in dorsolithotomy prepped and draped. The patient then had insertion of the cystoscope and kern cystoscopy revealed a normal bladder with no exophytic lesions masses growths or stones. Patient then had a Glidewire placed up the left ureteral orifice bypassing the stones and simply passing the wire did release the stones off the UPJ. The patient then had over the wire a 6 x 26 regular stent deployed coiling the upper collecting system and bladder. Patient then had the bladder drained and was placed in a supine position and under biplanar fluoroscopic guidance had a total of 2500 shocks applied to those stones. There appeared to be morphologic change to those stones. The patient overall seemed to tolerate the procedure well. PRE-OP/PRE-PROCEDURE DIAGNOSIS: Left UPJ / renal stones POST-OP/POST-PROCEDU RE DIAGNOSIS: Same as Preop ESTIMATED BLOOD LOSS: 0 ml SPECIMENS: None IMPLANTABLE DEVICES: None DRAINS: None COMPLICATIONS: None PARTICIPATION IN SURGERY/PROCEDURE: I/primary surgeon/proceduralis t performed the procedure with assistance. SIGNATURE: Angelique De León MD PATIENT NAME: Diallo Sal DATE: April 09, 2022 TIME: 11:49 AM [facility] XR ABDOMEN 1V SUPINEon 04-09 XR ABDOMEN 1V SUPINE * * *Final Report* * * DATE OF EXAM: Apr 09 2022 9:48AM [id number] [id number] - XR ABDOMEN 1V SUPINE / PROCEDURE REASON: Flank pain, kidney stone suspected * * * * Physician Interpretation * * * * ABDOMEN: Clinical Statement: Flank pain Comparison: 04/07/2022 FINDINGS: There is a 14 x 7 mm stone at the L3-4 level. Previously this calcification was present along the superior margin of L3. No other stones. Bowel gas pattern is normal. IMPRESSION: Previously seen stone within the left ureter has removed inferiorly compared to the study of 04/07/2022. Event Executive: NATAN Transcribe Date/Time: Apr 09 2022 9:50A Dictated by : MONI JARRETT MD This examination was interpreted and the report reviewed and electronically signed by: MONI JARRETT MD on Apr 09 2022 9:55AM EST [id number] CN [facility] ANES PREOPon 04-08-2022 ANES PREOP HNO ID: [id number] Author: Rosana Toledo APRN.CDA TEACHER Service: Anesthesiology Author Type: Nurse Practitioner Type: Anesthesia PreOp Filed: 04/08/2022 5:08 PM Note Text: 61yo obese female, exsmoker. No significant PMH. Only taking Tylenol. [facility] XR ABDOMEN 1V SUPINEon 04-07 XR ABDOMEN 1V SUPINE * * *Final Report* * * DATE OF EXAM: Apr 07 2022 3:34PM [id number] [id number] - XR ABDOMEN 1V SUPINE / PROCEDURE REASON: kidney stones * * * * Physician Interpretation * * * * XR ABDOMEN 1V SUPINE Ordering Physician: ANGELIQUE DE LEÓN KUB THE ABDOMEN Clinical Statement: Kidney stones. No comparison FINDINGS: Clustered calcifications measuring about 12 x 6 mm at the level of the left transverse process of L3 suspicious for proximal ureteral calculi. Probable punctate left renal calculi at the upper and mid pole region. No definite right renal or ureteral calculi. Unremarkable bowel gas pattern. No acute osseous abnormality. Lung bases are grossly clear. IMPRESSION: Left nephrolithiasis with clustered calcifications adjacent to the left transverse process of L3 suspicious for proximal ureteral calculi. Event Executive: PSCB Transcribe Date/Time: Apr 07 2022 3:49P Dictated by : KAMILA RAI MD This examination was interpreted and the report reviewed and electronically signed by: KAMILA RAI MD on Apr 07 2022 3:50PM EST [id number] [facility] Vital Signs Date Time Vital Sign Value Performing Clinician Sandi [email or web address] 12-27-2024 01:00-0400 Body temperature 97.9 [degF] Dr. Constantine Ariza MD Work Phone: [facility] 12-27-2024 01:00-0400 Diastolic blood pressure 69 mm[Hg] Dr. Constantine Ariza MD Work Phone: [facility] 12-27-2024 01:00-0400 Heart rate 109 /min Dr. Constantine Ariza MD Work Phone: [facility] 12-27-2024 01:00-0400 Respiratory rate 15 /min Dr. Constantine Ariza MD Work Phone: [facility] 12-27-2024 01:00-0400 SaO2% (BldA) [Mass fraction] 97 % Dr. Constantine Ariza MD Work Phone: [facility] 12-27-2024 01:00-0400 Systolic blood pressure 137 mm[Hg] Dr. Constantine Ariza MD Work Phone: [facility] 12-26-2024 21:35-0400 Body height 162.[address] Constantine Ariza MD Work Phone: [facility] 12-26-2024 21:35-0400 Body mass index (BMI) [Ratio] 32.7 kg/m2 Dr. Constantine Ariza MD Work Phone: [facility] 12-26-2024 21:35-0400 Body weight 86.[address] Constantine Ariza MD Work Phone: [facility] Encounters Encounter Date Encounter Type Care Provider Facility Start: 12-26-2024 End: 12-27-2024 Emergency department patient visit Dr. oCnstantine Ariza MD Work Phone: -Emergency Department Work Phone: Start: 04-14-2022 ambulatory ANGELIQUE DE LEÓN Facility :[id number] Start: 04-14-2022 End: 04-14-2022 Subsequent hospital visit by physician X[facility] Comment on above: Calculus of kidney [ N20.0] Start: 04-09-2022 End: 04-09-2022 ambulatory ANGELIQUE DE LEÓN Facility:[id number] Start: 04-07-2022 ambulatory ANGELIQUE DE LEÓN Facility :[id number] Start: 04-07-2022 End: 04-07-2022 Subsequent hospital visit by physician [facility] Comment on above: Calculus of kidney [ N20.0] Procedures Date Procedure Procedure Detail Performing Clinician Start: 12-26-[address] Constantine Ariza MD Work Phone: Start: 04-07-2022 Radiologic exam abdo men 1 view Angelique De León MD Work Phone: Plan of Treatment Date Care Activity Detail Author Start: 12-27-2024 [facility] Start: 04-15-2022 Influenza vaccination INFLUENZA (#1) [facility] Start: 2012 SHINGRIX VACCINE (1 of 2) SHINGRIX VACCINE (1 of 2) [facility] Start: 2007 COLOGUARD (FIT-DNA) COLOGUARD (FIT-DNA) [facility] Start: 2007 Colonoscopy COLONOSCOPY [facility] Start: 2007 COLORECTAL CANCER SCREENING COLORECTAL CANCER SCREENING [facility] Start: [address] COLONOGRAPHY [facility] Start: 2007 DIABETES SCREEN DIABETES SCREEN [facility] Start: 2007 FECAL OCCULT BLOOD FECAL OCCULT BLOOD [facility] Start: 2007 LIPID SCREEN LIPID SCREEN [facility] Start: 2007 SIGMOIDOSCOPY SIGMOIDOSCOPY [facility] Start: 2002 Mammography MAMMOGRAM [facility] Start: 1992 HPV TESTING HPV TESTING [facility] Start: 1983 PAP TESTING PAP TESTING [facility] Start: 1981 Urine microalbumin profile DTAP,TDAP,TD (1 - Tdap) [facility] Start: 1980 HEPATITIS C SCREENING HEPATITIS C SCREENING [facility] Start: 1980 HIV SCREENING HIV SCREENING [facility] Start: 1974 Adult depression screening assessment DEPRESSION SCREENING [facility] Start: 01-03-1963 COVID-19 VACCINE (#1) COVID-19 VACCINE (#1) [facility] Patient Education ED Anxiety Tete ction ED Hypertension, Established [facility] Work Phone: Patient referral [facility] Work Phone: Payers Date Payer Category Payer Self-pay 2021 Unknown [employer] PPO OOS [id number] 2021-Present [phone] [address] [place] [address] PPO [id number] 2021 Unknown [id number] Unknown [id number] Social History Date Type Detail [facility] Start: 1960 Sex Assigned At Not on file [facility] Start: 03-28-2022 End: 04-14-2022 Exposure to SARS-CoV-2 (event) Not sure [facility] Start: 04-08-2022 End: 12-26-2024 Tobacco smoking status ALIS Ex-smoker [facility] History of tobacco use Current smoker [facility] History of tobacco use Cigarette Smoker [facility] Start: 04-08-2022 End: 04-09-2022 Cigarettes smoked current (pack per day) - Reported 1 [facility] Start: 04-08-2022 Tobacco use and exposure Smokeless tobacco non-user [facility] Start: 04-09-2022 Alcohol intake Current drinke r of alcohol (finding) [facility] Start: 1960 Sex Assigned At Female [facility] Medical Equipment Procedure Code Equipment Code Equipment Origin al Text Equipment Identifier Dates Contour Stent [id number] Start: 04-09-2022 Mental Status Date Assessment Result Facility 12-26-2024 Cognitive function Level Of Cons ciousness Awake;Alert;Appropriate;Follow s Commands [facility] Work Phone: Clinical Notes 04-08-2022 to 12-27-2024 Note Date & Type Note Facility 12-27-2024 Discharge summary [facility] 12-26-2024 Discharge summary Note Date/Time December 27, 2024 1:09am [facility] Medical Records Department [address] [place] [address] Emergency Department Summary 12/26/24 MR#: [id number] Acct: [id number] Name: DIALLO SAL Rep #:[id number] : 1960 64 From: Inocente Varghese MD PCP: Dr. Constantine Ariza MD Status :REG ER Location: ED HPI History of Present Illness Chief Complaint: Hypertension Informant: patient Onset/Context/Timing Onset: Weeks Current Severity: Mild Maximum Severity: Mild Narrative Narrative: 64-year-old female history of hypertension. Last saw her doctor about a year ago. States I am not taking care of myself. She has special needs child thatshe takes care of. Has a history of hypertension previously was on medications but took herself off those medications about 5 years ago. Did not think it was helping. Denies any chest pain. No abdominal pain. No vomiting or fever. Denies any dysuria. Prior similar symptoms: Yes Recent Illness/Hospitalization: No PFSH PFSH Medical History (Updated 12/27/24 @ 01:[address] Inocente Varghese MD) History of cervical cancer Diarrhea Abdominal pain Gallstones Home Medications ?Medication ?Instructions ?Recorded ?Last Taken ?Type metoprolol tartrate 50 mg tablet 50 mg PO BID 30 days #60 tabs 12/27/24 Unknown Rx Allergy/AdvReac Type Severity Reaction Status Date / Time codeine AdvReac Severe muscle Verified 12/26/24 21:35 cramps Family History Mother Diabetes Hypertension Father Hypertension Heart disease Surgical History History of [facility] Social History Smoking Status: Former smoker alcohol intake: current alcohol intake frequency: a few times a month substance use type: does not use ROS ROS ED ROS Narrative General malaise. Intermittent diarrhea. Constitutional Constitutional ED: Denies chills or fever(s) ENT ENT ED: Denies ear pain Cardiovascular Cardiovascular: Denies chest pain Respiratory/Chest Respiratory/Chest: Denies cough or dyspnea Gastrointestinal Gastrointestinal: Reports diarrhea; Denies abdominal pain, melena, nausea or vomiting Genitourinary Genitourinary ED: Denies dysuria or hematuria Musculoskeletal Musculoskeletal: Denies arthralgias Integumentary Denies abscess Neurologic Neurologic: Denies headache(s) Psychiatric Psychiatric: Denies anxiety Endocrine Endocrinology: Denies cold intolerance Hematologic/Lymphatic Hematologic/Lymphatic: Reports none Allergic/Immunologic Allergic/Immunologic ED: Denies mouth swelling, tongue swelling or urticaria EXAM Physical Exam Narrative Exam Narrative: Well-appearing 64-year-old female. Vital signs her pulse and I am in the room just around 111. Afebrile. Initial pressure 192/100. Pulse ox 97% on room airno hypoxia. No distress. H EENT exam pupils round react light. Motions members. Neck nontender no JVD. No lymphadenopathy. Lungs clear to auscultation bilaterally. Heart tachycardic 115 no murmur. Chest wall nontender. Abdomen soft nontender. Moving all 4 extremities. Normal strength. Normal dorsi plantarflexion. Nontender no edema. Back nontender. Neurologically she is awake alert. Answering questions following commands. NIH0. Const Vital Signs: 12/26/24 21:35 12/26/24 21:37 12/26/24 22:07 Temperature 97.1 F L Temperature Source Oral Pulse Rate 133 H 111 H Respiratory Rate 18 18 Respiratory Effort Normal Non-Labored Respiratory Pattern Normal Blood Pressure 192/100 H 180/85 H Blood Pressure Mean 130 116 Pulse Ox 97 98 Oxygen Delivery Method Room Air Room Air 12/26/24 23:00 12/26/24 23:48 12/27/24 00:00 Temperature Temperature Source Pulse Rate 115 H 111 H 116 H Respiratory Rate 16 18 14 Respiratory Effort Respiratory Pattern Blood Pressure 176/97 H 183/84 H 195/77 H Blood Pressure Mean 123 117 116 Pulse Ox 98 98 95 Oxygen Delivery Method Room Air Room Air Room Air Positive well nourished and well developed; Negative for cachectic, contracturesor unkempt General Appearance ED: well developed; Negative for unkempt, cachectic, contractures, cyanotic, diaphoretic or pallor Nutritional Appearance: Negative for cachectic HEENT Reports moist mucous membranes Negative for trauma or tenderness Eyes PERRL and EOMs intact bilaterally Neck no lymphadenopathy, supple and no JVD Chest Wall inspection of chest normal and palpation of chest normal Resp normal respiratory effort and clear to auscultation bilaterally Cardio regular rhythm, S1 normal heart sound, S2 normal heart sound and no murmurs; Negative for regular rate Rate: tachycardic GI normal to inspection, nondistended, normoactive bowel sounds, non-tender, non-distended and no masses Auscultation: normoactive bowel sounds Palpation: soft; Negative for tender, guarding or rebound tenderness present Back/Spine no CVA tenderness General Back: Negative for CVA tenderness Cervical Spine: Negative for cervical spine tenderness Thoracic Spine / Upper Back: Negative for thoracic spinal tenderness or paraspinal muscle tenderness Lumbar Spine / Lower Back: Negative for lumbar spinal tenderness Extremity normal to inspection General Extremety ED: Negative for edema or tenderness General Extremity: Negative for edema Neuro oriented x3 and CN's II-XII intact bilaterally Sensorium / Orientation: alert; Negative for orientation impaired, lethargic or stuporous Motor Exam: strength 5/5 throughout; Negative for general weakness or strength abnormal Psych mental status grossly normal Appearance: Negative for unkempt Attitude: No agitated Mood & Affect: Negative for depressed, anxious or tearful Skin no rashes or lesions noted and no wounds General Skin Exam: Negative for jaundice or pallor Lesions: No lesion noted Rashes: No rashes noted Trauma: Negative for abrasion MDM MDM MDM Narrative Medical decision making narrative: 64-year-old female general malaise has not been taking her blood pressure medication for years. Exam benign. She is tachycardic. EKG and labs are beingobtained including a TSH. This could all be due to blood pressure. Could be secondary to anemia, dehydration thyroid disease,... Repeat exam patient is doing okay. She seems to be very anxious. She is also complaining some nausea. Given Zofran and one milligram of Ativan. Repeat exam around 1 AM patient doing well. Much more relaxed. Blood pressurescurrently about 150/90. Patient is feeling better. She feels comfortable beingdischarged home. I think she has acute on chronic hypertension has been treatedbecause she came off the medication. Also think there is an anxiety component. She will be restarted on her metoprolol 50 mg twice daily. Log her blood pressures to follow-up with her doctor decide if they need to change or adjust the medication dose. Also discussed with her physician possible both medical and nonmedical ways to treat anxiety. History & Record Review Discussion w/independent historian: Patient and Family Additional record(s) reviewed:: Prior inpatient record, Prior outpatient record and Prior labs Lab Data Attestation: I reviewed the patient's lab results. Lab results narrative: CBC shows a white count 1.5. H&H is 16 and 47. Platelets 272. Electrolytes show sodium 140. Gap 13. BUN 16 creatinine 0.6. Glucose 139. TSH 1.2 and normal. Labs: Laboratory Results - last 24 hr 12/26/24 22:08 WBC 11.5 H RBC 5.56 H Hgb 16.4 H Hct 47.1 H MCV 84.7 MCH 29.5 MCHC 34.8 RDW Std Deviation 36.7 RDW Coeff of Tianna 11.9 Plt Count 272 MPV 10.8 Immature Gran % (Auto) 0.400 Neut % (Auto) 72.2 H Lymph % (Auto) 18.6 L Oxford % (Auto) 7.6 Eos % (Auto) 0.6 Baso % (Auto) 0.6 Absolute Neuts (auto) 8.3 H Absolute Lymphs (auto) 2.14 Nucleated RBC % 0 Sodium 140 Potassium 3.5 Chloride 103 Carbon Dioxide 24.1 Anion Gap 13 BUN 16 Creatinine 0.68 L Estim Creat Clear Calc 91.25 Est GFR (MDRD) Non-Af 98 BUN/Creatinine Ratio 24.0 H Glucose 139 H Calcium 10.4 TSH 1.220 Rhythm Strip Rhythm Strip: Sinus Tach Rate: 110 Ectopy: PVC(s) EKG Initial EKG: Attestation: I personally reviewed and interpreted this EKG as follows: Interpretation: Sinus Tachycardia Comments: Sinus tachycardia rate of 110. PVCs. No acute signs of [place] or ischemia. Discharge Plan Triage Chief Complaint: Hypertension ED Provider: Inocente Varghese Dx/Rx/DC Orders Clinical Impression: Hypertension, Anxiety Instructions: ED Anxiety Reaction, ED Hypertension, Established Prescriptions: New metoprolol tartrate 50 mg tablet 50 mg PO BID 30 Days Qty: 60 0RF Primary Care Provider: Constantine Ariza Referrals: Constantine Ariza MD [Primary Care Provider] - As soon as possible Activity Restrictions/Additional Instructions: Log your blood pressure twice daily. In the morning after breakfast when you are calm and relaxed. Again in the evening after dinner when you are calm and relaxed. Recorded and take a weeks worth of blood pressures to your doctor to see if they need to adjust your blood pressure medication. Also discussed with her primary care physician anxiety and ways to treat that both with medication and other ways such as reading, meditation, exercise and walking. Print Language: Zambian Disposition Disposition: Home, Self Care What to do if you have Problems For any increased pain, shortness of breath, bleeding, nausea or vomiting, chestpain, or any unexpected problems, contact your Primary Care Provider. Call [facility] ([phone]) or report to the closest Emergency Room. Call 911 if necessary. 12/27/24 0109 <Electronically signed by Inocente Varghese MD> Alciraer Signature (if applicable): CC: Dr. Constantine Ariza MD ~ Signed [facility] Work Phone: 1(476) 824-267005-14-2025 Hospital Discharge instructions Additional Instructions Log your blood pressure twice daily. In the morning after breakfast when you are calm and relaxed. Again in the evening after dinner when you are calm and relaxed. Recorded and take a weeks worth of blood pressures to your doctor to see if they need to adjust your blood pressure medication. Also discussed with her primary care physician anxiety and ways to treat that both with medication and other ways such as reading, meditation, exercise and walking.[facility] Work Phone: 1(192) 696-729208-31-2022 NoteHNO ID: [id number] Author: HUGO Martínez) Service: Radiology Author Type: Technologist Type: Progress Notes Filed: 04/14/2022 2:21 PM Note Text: Summary: xray Radiology Service Progress Note PATIENT NAME: Diallo Sal DATE OF SERVICE: April 14, 2022 TIME: 2:20 PM PATIENT IDENTITY VERIFICATION COMPLETED USING TWO (2) IDENTIFIERS: Name and Date of confirmed by patient verbally. FALL SCREENING: Has the patient had 2 falls in the last year or 1 fall with injury or currently using an Ambulatory Assistive Device (Walker, Cane, Wheelchair, Crutches, etc.)? No PATIENT GENDER DATA: Female. status: : No status: NO. PATIENT RELEVANT IMPLANT DATA REVIEWED: Not Applicable RADIOLOGY DEPARTMENT: General X-ray: Exam(s) Completed: Abdomen X-Ray: Abdomen PERIPHERAL IV DATA: Not applicable SIGNED BY: RT Drea(R) April 14, 2022 2:20 PM[facility] History of Present illness Narrative* RT Drea(R) - 04/14/2022 2:00 PM EDTSummary: xray Radiology Service Progress Note PATIENT NAME: Diallo Sal DATE OF SERVICE: April 14, 2022 TIME: 2:20 PM PATIENT IDENTITY VERIFICATION COMPLETED USING TWO (2) IDENTIFIERS: Name and Date of confirmedby patient verbally. FALL SCREENING: Has the patient had 2 falls in the last year or 1 fall with injury or currently using an Ambulatory Assistive Device (Walker, Cane, Wheelchair, Crutches, etc.)? No PATIENT GENDER DATA: Female. status: : No status: NO. PATIENT RELEVANT IMPLANT DATA REVIEWED: Not Applicable RADIOLOGY DEPARTMENT: General X-ray: Exam(s) Completed: Abdomen X-Ray: Abdomen PERIPHERAL IV DATA: Not applicable SIGNED BY: RT Drea(R) April 14, 2022 2:20 PM documented in this encounterOhio[facility]-26-[facility] NoteHNO ID: [id number] Author: Arlene Douglas Service: Pharmacy Author Type: ? Type: Plan of Care Filed: 04/09/2022 1:48 PM Note Text: PHARMACY BEDSIDE DELIVERY SERVICE Patient Name: Diallo Sal The marked outpatient medications were Filled at: [facility] and delivered to the patient's bedside to pt CEFUROXIME 500MG 6 TABS DELIVERED Medication List CONTINUE taking these medications TYLENOL EXTRA STRENGTH 500 mg tablet Generic drug: acetaminophen You might also be taking other medications not listed above. If you have questions about any of your other medications, talk to the person who prescribed them or your Primary Care Provider. Arlene Douglas PAGER: [phone] April 09, 2022 1:38 PMC[facility]08-26-2022 NoteHNO ID: [id number] Author: Rg Reina APRN.DRYING AND WINDING SUPERVISOR Service: Anesthesiology Author Type: Nurse Software Quality Test Engineer Type: Anesthesia Procedure Notes Filed: 04/09/2022 10:45 AM Note Text: ANESTHESIOLOGY PROCEDURE NOTE Airway General Information Procedure Start Time/Medication Administration: 04/09/2022 10:40 AM Patient location during procedure: OR Timeout Performed Pre-procedure: timeout performed Consent Obtained: Yes Patient identity confirmed: arm band Staffing Anesthesiologist: Charley Sabillon MD DRYING AND WINDING SUPERVISOR: Rg Reina APRN.DRYING AND WINDING SUPERVISOR Performed by: anesthesiologist and DRYING AND WINDING SUPERVISOR Indications and Patient Condition Indications for airway management: anesthesia Preoxygenated: yes anesthesia circuit Patient position: sniffing Method: asleep Cricoid Pressure: No Manual In-Line Stabilization: No Difficult Mask: No Final Airway Details Final airway type: mask Mask size: 4 Number of attempts at approach: 1 Ventilation between attempts: BVM Failed airway: no Unrecognized esophageal intubation: no Airway not difficult SIGNATURE: Rg Reina APRN.CRNA PATIENT NAME: Diallo Sal DATE: April 09, 2022 TIME: 10:44 AM CSN: [id number] Grove [facility]08-26-2022 NoteHNO ID: [id number] Author: Rg Reina APRN.CRNA Service: Anesthesiology Author Type: Nurse Software Quality Test Engineer Type: Anesthesia Procedure Notes Filed: 04/09/2022 10:45 AM Note Text: ANESTHESIOLOGY PROCEDURE NOTE Airway General Information Procedure Start Time/Medication Administration: 04/09/2022 10:40 AM Patient location during procedure: OR Timeout Performed Pre-procedure: timeout performed Consent Obtained: Yes Patient identity confirmed: arm band Staffing Anesthesiologist: Charley Sabillon MD DRYING AND WINDING SUPERVISOR: Rg Reina APRN.DRYING AND WINDING SUPERVISOR Performed by: anesthesiologist and DRYING AND WINDING SUPERVISOR Indications and Patient Condition Indications for airway management: anesthesia Preoxygenated: yes anesthesia circuit Patient position: sniffing Method: asleep Cricoid Pressure: No Manual In-Line Stabilization: No Difficult Mask: No Final Airway Details Final airway type: mask Mask size: 4 Number of attempts at approach: 1 Ventilation between attempts: BVM Failed airway: no Unrecognized esophageal intubation: no Airway not difficult SIGNATURE: Rg Reina APRN.DRYING AND WINDING SUPERVISOR PATIENT NAME: Diallo Sal DATE: April 09, 2022 TIME: 10:44 AM CSN: [id number] Grove [facility]08-25-2022 NoteHNO ID: [id number] Author: Rosana Toledo APRN.CNP Service: Anesthesiology Author Type: Nurse Practitioner Type: Progress Notes Filed: 04/08/2022 5:08 PM Note Text: Summary: dos meds Day of Surgery Medication Instructions: No current facility-administered medications for this encounter. Current Outpatient Medications Medication Sig Dispense Refill acetaminophen (TYLENOL EXTRA STRENGTH) 500 mg tablet Take 1,000 mg by mouth every 8 hours as needed. Take no medications morning of surgery.[facility] HospitalEvaluation noteNo assessment information availableWFirelands Regional [facility] Work Phone: Reason for referral (narrative)No reason for referral information availableWFirelands Regional [facility] Work Phone: Summary Purpose Family History No Family History Records Found Relationship Condition Age at Onset Recorded Date/T julian mother Diabetes mellitus Unknown Hypertension Unknown father Hypertension Unknown Cardiac disease Unknown Advance Directives No Advanced Directives Records Found Advance Directive Response Recorded Date/ Time Do you have a Healthcare Power of Student Assistance Counselor? No December 26, 2024 9:37pm Chief Complaint and Reason for Visit Chief Complaint Admit Date HYPERTENSION December 26, 2024 9:31p m Additional Source Comments Source Comments (unrecognize d section and content) In the event this informatio n is protected by the Federal Confidentiality of Alcohol and Drug Abuse Patient Records regulations: The Federal rules restrict any use of the information to criminally investigate or prosecute any alcohol or drug abuse patient.[facility] HospitalIn the event this information is protected by the Federal Confidentiality of Alcohol and Drug Abuse Patient Records regulations: The Federal rules restrict any use of the information to criminally investigate or prosecute any alcohol or drug abuse patient.[facility] INFORMATION SOURCE (unrecogn ized section and content) DATE CREATED AUTHOR 04/15/2022 [facility] DATE CREATED AUTHOR AUTHOR'S ORGANIZ ATION 04/28/2022 [facility] DATE CREATED AUTHOR AUTHOR'S ORGANIZ ATION 01/09/2025 [facility] Care Teams (unrecognized sec tion and content) Team Status: Active Member Role Status Dates Dr. Constantine Ariza MD Primary Care Provider Acti ve Team Status: Inactive Member Role Status Dates Dr. Constantine Ariza MD Primary Care Provider Acti ve Start: December 26, 2024 End: December 27, 2024 Dr. Inocente Varghese MD Emergency Provider Active S tart: December 26, 2024 End: December 27, 2024 Goals (unrecognized section and content) Goals may be documented in a n alternate section FOR RECORDS PERTAINING TO PATIENTS WHO ARE OR HAVE BEEN ENROLLED IN A CHEMICAL DEPENDENCY/SUBSTANCEABUSE PROGRAM, SOME INFORMATION MAY BE OMITTED. This clinical summary was aggregated from multiple sources. Caution should be exercised in using it in the provision of clinical care. This summary normalizes information from multiple sources, and as a consequence, information in this document may materially change the coding, format and clinical context of patient data. In addition, data may be omitted in some cases. CLINICAL DECISIONS SHOULD BE BASED ON THE PRIMARY CLINICAL RECORDS. [facility]. provides no warranty or guarantee of the accuracy or completeness of information in this document.
[2025-02-07 14:23] LABS: Iron Binding Capacity,Unsat 193 ug/dL (228-428)
== END | disposition home or self-care (01) ==
LOC: MFPLAB 14:11
PROVIDERS: PCP Family Medicine; Referring Provider Family Medicine; Visit Provider Family Medicine
DX: D75.1 Secondary polycythemia (principal); I10 Essential (primary) hypertension; R63.5 Abnormal weight gain
CPT/HCPCS: 36415; 80053; 80061; 82533; 82728; 83540; 83550; 84443; 85025; 85045